=== PATIENT | female | born 1960 | race Two or more races ===

== ENCOUNTER 2020-03-03 10:31 | Emergency (ER) | payer OTHER ==
[~2020-03-03] VITALS: Ht 162.6 cm; Wt 59.0 kg
[2020-03-03 10:40] VITALS: BP 140/97
== END 2020-03-03 11:22 | disposition home or self-care (01) ==
LOC: ER 10:34
DX: Z20.828 Contact with and (suspected) exposure to other viral communicable diseases (principal)